=== PATIENT | male | born 1945 | race Caucasian/White ===

== ENCOUNTER 2016-07-16 13:56 | Emergency (ER) | payer MEDICARE, BC | END 2016-07-16 16:38 | disposition home or self-care (01) | LOC: ER 13:56 | DX: R55 Syncope and collapse (principal); G93.9 Disorder of brain, unspecified; F17.200 Nicotine dependence, unspecified, uncomplicated; Z79.82 Long term (current) use of aspirin; Z79.899 Other long term (current) drug therapy | CPT/HCPCS: 36415 ==